=== PATIENT | male | born 1960 | race Caucasian/White ===

== ENCOUNTER 2021-06-22 08:28 | Outpatient (REF) | payer OTHER, SELFPAY ==
--- NOTE | 2021-07-08 13:47 | MHC.AU.ANO ---
Adult Audiological Evaluation Date of Visit: 06/22/21 [employer]ants Used: Not Applicable Reason for Appointment: Audiologic evaluation for a re-evaluation related to his hearing loss and tinnitus. Bhaskar reports he was tested by the [facility] in order to determine if his noise exposure during the time he served in the may be related to his hearing loss. He is already receiving the maximum benefit available for his symptom of tinnitus following the service related noise exposure. Bhaskar brings with him today a copy of the [facility] report stating his hearing loss. The examiner noted the following Your [facility] examiner opined that it is at least as likely as not that your hearing loss is due to noise exposure. Due to the degree of loss found with the evaluation, Bhaskar was assigned 0 percent impairment. However, he wants to be sure the hearing test results are accurate Does patient feel they have a hearing loss?: Yes If Yes, Which Ear?: Both Ears When Was Hearing Difficulty First Noticed?: Has hearing been tested previously?: Yes Previous Hearing Test Results: 06/15/2019 [facility] Right Ear: 500 Hz-35 dB HL, 1000 Hz-35 dB HL, 2000 Hz-45 dB HL, 3000 Hz-45 dB HL, 4000 Hz-45 dB HL. SILK BRUSHER=43 dB HL. Speech discrimination-96% Left Ear: 500 Hz-45 dB HL, 1000 Hz-45 dB HL, 2000 Hz-45 dB HL, 3000 Hz-50 dB HL, 4000 Hz-50 dB HL. SILK BRUSHER=48 dB HL. Speech discrimination-98% Hearing Handicap Inventory: HHIE SCORE: 20 Based on HHIE score, patient has: Mild to moderate perceived hearing handicap Ear History: History of Ear Wax Buildup: Both Ears Bothersome Tinnitus/Ringing/Noises in Ears: Both Ears Ear used on the phone: Right Ear History of occupational noise exposure?: Yes History: Yes: 23 years Medical History: Medical History: High Blood Pressure Medication List: Norvas Otoscopy: Right Ear: Small amount of non-occluding cerumen Left Ear: Small amount of non-occluding cerumen Tympanometry: Tympanometry performed due to: To assess integrity of the middle ear system Right Ear: Normal Middle Ear System (Type A) Left Ear: Normal Middle Ear System (Type A) Otoacoustic Emissions Frequency Range Used: 1.6-8 kHz Right Ear Results: Reduced 5730-5350 Hz. Absent 4000-12,000 Hz. Analysis: Reduced/Absent emissions suggest cochlear dysfunction Left Ear Results: Reduced 2000 Hz. Absent 1500 and 3000-12,000 Hz Analysis: Reduced/Absent emissions suggest cochlear dysfunction Hearing Evaluation: Transducer(s) Used: Insert Earphones Bone Conduction Method: Conventional Audiometry Stimuli Used: Pure Tones Right Ear: Description of Hearing: Borderline normal hearing levels at 250 Hz, sloping to a moderate high frequency sensorineural hearing loss. Left Ear: Description of Hearing: Borderline normal hearing levels at 250 Hz, sloping to a moderate high frequency sensorineural hearing loss. Thresholds are 5-10 dB poorer compared to the right ear at 500-4000 and 8000 Hz. Speech Recognition Threshold (SRT): Method Used: Monitored Live Voice Stimuli Used: Spondee Words Right Ear: 25 dB HL Left Ear: 25 dB HL Word Discrimination: Method: Recorded Lists Word Lists Used: NU-6 Right Ear: 100% at 65 dB HL Left Ear: 100% at 65 dB HL QuickSIN: Binaural Quick SIN Test: 3 dB SNR Loss suggesting Bhaskar experiences a mild degree of difficulty understanding speech with increasing levels of background noise in this controlled test environment compared to individuals with normal hearing thresholds for all frequencies. Comparison: Compared to the most recent evaluation: Thresholds have improved bilaterally. Compared to testing performed at the [facility] in 2020, overall hearing thresholds for both ears have improved 5-15 dB. This would likely mean the percent of impairment required by the [facility] would not change. Release of information from facilities who performed hearing tests was requested. Testing from [facility] only consistent of a tympanogram so hearing threshold difference cannot be provided. Testing from [facility] and [facility] have not been received as of the date this report was completed. Recommendations: - Patient does not feel they are ready for amplification at this time. - Hearing protection should be used when around loud noise. - Discussed the theories of tinnitus today. - If hearing difficulties increase and Bhaskar is interested in trial with hearing aids, he is advised to contact the [facility]. Although his hearing loss may not be eligible for compensation benefit, he is likely eligible for [facility] hearing aid benefits. - Audiological re-evaluation in one year. Diagnosis: Primary Diagnosis: H90.3 Bilateral Sensorineural Hearing Loss Secondary Diagnosis: H93.13 Tinnitus, Bilateral Services Performed: Comprehensive Audiological Evaluation (CPT 91067) Diagnostic Otoacoustic Emissions (CPT 85459, 26+TC) Tympanometry (CPT 02725) Signature: Provider: Sg Garcia, CCC-A
== END 2021-06-22 08:29 | disposition home or self-care (01) ==
LOC: HO.SH 08:28
PROVIDERS: Visit Provider Internal Medicine
DX: Z01.118 Encounter for examination of ears and hearing with other abnormal findings (principal); H90.3 Sensorineural hearing loss, bilateral; H93.13 Tinnitus, bilateral
CPT/HCPCS: 92557; 92567; 92588

== ENCOUNTER 2021-11-11 10:27 | Emergency (ER) | payer OTHER, SELFPAY ==
--- NOTE | ~2021-11-11 | XR_ITS ---
EXAMINATION: XR FINGER, RIGHT CLINICAL INFORMATION: Thumb laceration. Dog bite. COMPARISON: None TECHNIQUE: Three views of the right thumb. FINDINGS: Bone alignment is normal. No fracture or dislocation is seen. There is evidence of trauma to the soft tissues of the volar forearm with with air adjacent to the IP and MCP joints and proximal phalanx. There is linear increased attenuation adjacent to the proximal phalanx and it is difficult to exclude soft tissue foreign body. This could be related to the overlying dressing. Repeat x-ray should be considered if clinically indicated. XR/XR finger RT min 2V IMPRESSION: Trauma to the soft tissues. No fracture. Possible soft tissue foreign body adjacent to the proximal phalanx should be considered as described above.
[2021-11-11 10:37] VITALS: BP 184/99; PULSE 68; RESP 16; TEMP 36.6; O2SAT 98; BMI 28.8
[2021-11-11] MEDS: Lidocaine HCl 1 % MPF 2 ML VIAL INFILTRATI ×7 (11:30→12:43)
--- NOTE | 2021-11-11 12:31 | ED.ANIMALBIT ---
HPI - Animal Bite General Chief Complaint: Animal Bite Stated Complaint: dog bite right thumb Time Seen by Provider: 11/11/21 10:52 Source: patient Mode of arrival: ambulatory Limitations: no limitations History of Present Illness HPI narrative: 61-year-old male who presents emergency department for evaluation of a dog bite to his right thumb. The patient went to pet a neighbor dog when the dog bit his right finger. The dog is up-to-date on his rabies vaccinations. Patient is also up-to-date on his tetanus and last had a tetanus vaccination in May of 2021. complaint: animal bite Onset (ago): hour(s) Animal: dog Description of animal: household pet and immunizations UTD Mechanism: bite Location: other (Right thumb) Location - Extremities: right: hand Pain description: dull Severity scale (1-10): 4 Context: playing with animal Associated symptoms: none Related Data Patient tetanus UTD: Yes Previous Rx's Medication Instructions Recorded amoxicillin 875 mg-potassium 1 tab PO Q12H 7 days #14 tabs 11/11/21 clavulanate 125 mg tablet Allergies Allergy/AdvReac Type Severity Reaction Status Date / Time No Known Allergies Allergy Verified 11/11/21 10:36 Review of Systems Review of Systems: Yes all other systems are reviewed and are negative [facility] Past Medical History [facility] Narrative: Past medical history: None. Social history: Patient is a and served 23 years in the [employer]. He is his is here in the emergency room with him. He tobacco use. Denies drug use. Social History Social History Advance Directives: Yes Advance Directives on File: Yes Advance Directives Date on File: 06/22/21 Physical Exam ED Vital Signs: Vital Signs - 24 hr 11/11/21 10:37 Temperature 98 F Pulse Rate 68 Respiratory Rate 16 Blood Pressure 184/99 H Pulse Oximetry 98 Oxygen Delivery Method Room Air BMI result Body Mass Index 28.8 Const General: cooperative, healthy appearing and no acute distress Extrem Other: Patient has a complex C shaped, macerated laceration to right thumb involving the radial aspect of the proximal and distal phalanx, the flap laceration measures 5.0 cm in length, I was able to lift the flap, the tendons are visible in the wound and they appear to be intact, the patient is able to flex and extend his thumb without any difficulty, has normal sensation. The patient also has a laceration to the ventral aspect of the thumb has measuring approximately 2.0 cm in length, the wound is full skin thickness Course Course Course Narrative: 61-year-old male who presents emergency department for evaluation of a dog bite to his right thumb. The patient has a complex C-shaped flap involving the proximal and distal phalanx of the thumb, the flap was lifted and the tendons were exposed but they appear to be intact. Patient's sensory exam appears to be normal as well. Patient was anesthetized using a digital block.. The wound were gently approximated with 4.0 Ethilon sutures, please see the procedure. Patient was started on prophylaxis with Augmentin 875/125 and given his 1st dose in the emergency department and started on amoxicillin 875/125 q.12 hours for 7 days. He is also given Tylenol 975 mg orally for his pain. Given the extent of the laceration, the depth of the wound and the fact that it was an animal bite, I will refer the patient to our hand surgeon for re-evaluated and a neuro sensory check. Procedures Procedure Narrative Procedure Narrative: Right thumb laceration repair Laceration 1.: C-shaped laceration to the right thumb measuring 5.0 cm. The patient was given a digital block to the right thumb using 1% lidocaine, 8 cc total was used. After the wound was anesthetized the wound was explored and I did not see any foreign bodies within the wound, the patient's tendons are exposed but they appear to be intact. The patient's wound was extensively irrigated using a 30 cc syringe a 18 gauge Angiocath, approximately 250 cc of normal saline was used. The wound was then closed in 1 layer with 4.0 Ethilon sutures a total of 10 sutures were used. The patient tolerated the procedure well Laceration 2.: Laceration to the ventral aspect of the right thumb, 2.0 cm The patient was given a digital block to the right thumb using 1% lidocaine, 8 cc total was used. After the wound was anesthetized the wound was explored and I did not see any foreign bodies within the wound. The patient's wound was extensively irrigated using a 30 cc syringe a 18 gauge Angiocath, approximately 1 cc of normal saline was used. The wound was then closed in 1 layer with 4.0 Ethilon sutures a total of 2 sutures were used. The patient tolerated the procedure well Please note that the wound was not closely approximated since this is a dog bite. Discharge Plan Discharge Clinical Impression: Dog bite Qualifiers: Encounter type: initial encounter Qualified Code(s): W54.0XXA - Bitten by dog, initial encounter Laceration of right thumb Qualifiers: Encounter type: initial encounter Damage to nail status: without damage Foreign body presence: without foreign body Qualified Code(s): S61.011A - Laceration without foreign body of right thumb without damage to nail, initial encounter Patient Disposition: Home, Self-Care Instructions: Laceration (ED) Additional Instructions: Apply bacitracin twice a day to the wounds. Watch for signs of infection which include increased redness, increased swelling, drainage of pus, red streaks going away from the wounds. If the wound looks infected you should follow-up with the hand surgeon or return to the emergency department for re-evaluation. Take Augmentin 875/125, 1 pill twice a day for 7 days, I am starting you on this medicine to try to prevent a wound infection from the dog bite. Take ibuprofen 200 mg pills, 3 pills every 6 hours as needed for pain. Take Tylenol (acetaminophen) 500 mg pills, 2 pills every 4 to 6 hours as needed for pain. Contact our orthopedic group today to make a follow-up appointment in 1-2 days for a wound check and to make sure that the tendons and nerves and use some are working. Can either see the hand surgeon or 1 of the advanced practice clinicians in the office. Prescriptions: New amoxicillin-pot clavulanate 875-125 mg tablet 1 tab PO Q12H 7 Days Qty: 14 0RF Referrals: Chica Evans MD [Physician] - 2 days (Dog bite to right thumb, 2 wounds repaired, needs follow-up for wound check and for repeat neuro sensory exam)
[2021-11-11] MEDS: Amoxicillin/Potassium Clav 875 MG TABLET PO (12:43)
[2021-11-11] MEDS: Acetaminophen 325 MG TABLET 975 MG PO (12:43)
--- NOTE | 2021-11-11 17:12 | PC.NURSE ---
addendum: christian Finch [place] [employer] returned call at [phone], information relayed
== END 2021-11-11 14:02 | disposition home or self-care (01) ==
PROVIDERS: Emergency Provider Emergency Medicine Emergency Medical Services; PCP Internal Medicine
DX: S61.051A Open bite of right thumb without damage to nail, initial encounter (principal); W54.0XXA Bitten by dog, initial encounter; Y93.89 Activity, other specified; Y92.017 Garden or yard in single-family (private) house as the place of occurrence of the external cause; Y99.9 Unspecified external cause status
CPT/HCPCS: 12001; 12042; 73140; 99283; 99284

== ENCOUNTER → 2021-11-17 11:16 | Outpatient (BNVA) | payer OTHER, SELFPAY | PROVIDERS: PCP Internal Medicine; Visit Provider Physician Assistant | DX: S61.011A Laceration without foreign body of right thumb without damage to nail, initial encounter (principal); W54.0XXA Bitten by dog, initial encounter; Y93.9 Activity, unspecified; Y92.9 Unspecified place or not applicable; Y99.9 Unspecified external cause status | CPT/HCPCS: 99202 ==

== ENCOUNTER → 2021-11-24 12:36 | Outpatient (BNVA) | payer OTHER, SELFPAY | PROVIDERS: PCP Internal Medicine; Visit Provider Physician Assistant | DX: S61.051D Open bite of right thumb without damage to nail, subsequent encounter (principal); W54.0XXD Bitten by dog, subsequent encounter; S61.011D Laceration without foreign body of right thumb without damage to nail, subsequent encounter | CPT/HCPCS: 99212 ==

== ENCOUNTER → 2021-12-03 10:33 | Outpatient (BNVA) | payer OTHER, SELFPAY | PROVIDERS: PCP Internal Medicine; Visit Provider Physician Assistant | DX: S61.011D Laceration without foreign body of right thumb without damage to nail, subsequent encounter (principal); W54.0XXD Bitten by dog, subsequent encounter | CPT/HCPCS: 99212 ==

== ENCOUNTER → 2021-12-11 11:14 | Outpatient (BNVA) | payer OTHER, SELFPAY | PROVIDERS: PCP Internal Medicine; Visit Provider Physician Assistant | DX: S61.011D Laceration without foreign body of right thumb without damage to nail, subsequent encounter (principal); W54.0XXD Bitten by dog, subsequent encounter | CPT/HCPCS: 99212 ==

== ENCOUNTER 2022-02-04 11:30 | Outpatient (RCR) | payer OTHER, SELFPAY ==
--- NOTE | 2022-01-13 10:11 | MHC.OT.EP ---
[address] [phone] Occupational Therapy Plan of Care Date of Evaluation: 01/13/22 Diagnosis: Laceration of right thumb s/p dog bite Assessment: Pt. is a 61 y/o male s/p right thumb laceration from a dog bit incident on 11/11/21. Pt. reports he does not have pain. The incision is well healed although does have increased scar tissue surrounding the IP joint which is limiting ROM. There is some hypersensitivity at the dorsal-lateral scar. An 11.4% limitation was reported per the Quick DASH assessment. Pt. would benefit from short term skilled OT services for scar management and improvement in ROM. 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 Thank you once again for your referral.
== END 2022-04-07 10:05 | disposition home or self-care (01) ==
LOC: HO.OT 11:30
PROVIDERS: PCP Internal Medicine; Visit Provider Physician Assistant
DX: S61.011A Laceration without foreign body of right thumb without damage to nail, initial encounter (principal); W54.0XXA Bitten by dog, initial encounter
CPT/HCPCS: 97035; 97110; 97140; 97165